=== PATIENT | male | born 1970 | race Caucasian/White ===

== ENCOUNTER → 2019-11-20 | Outpatient (CLI) | payer MEDICARE ==
[~2019-11-20] MED LIST: ALBUTEROL0.09 MG/A2 INH; COLCRYS0.6 MG PO; DETROL LA4 MG PO; LASIX40 MG PO; LISINOPRIL/HCTZ1 TA4 PO; MOBIC15 MG PO; NEURONTIN600 MG PO; OPANA5 MG PO; OXYCODONE/APAP1 TA8 PO; SIMVASTATIN20 MG PO; ULORIC80 MG PO; ZANTAC150 MG PO
[2019-11-20 13:02] LABS: ALBUMIN 3.9 gm/dl (3.1-4.5); BUN 13 mg/dl (7-24); CHLORIDE 107 mmol/L (98-107); CHOLESTEROL 162 mg/dL (<200); CREATININE 1.16 mg/dL (0.70-1.30); POTASSIUM 3.5 mmol/L (3.5-5.1); SGOT/AST 14 IU/L (3-35); SGPT/ALT 19 U/L (12-78); SODIUM 141 mmol/L (136-145); TRIGLYCERIDES 158 mg/dl (<150); VLDL CHOLESTEROL 32 mg/dL (6-40)
[2019-11-20 13:03] LABS: ALKALINE PHOSPHATASE 60 U/L (45-117); HDL CHOLESTEROL 37 mg/dl (40-60); LDL CHOLESTEROL 93 mg/dL (9-159); TOTAL PROTEIN 8.1 gm/dL (6.4-8.2)
== END | disposition home or self-care (01) ==
LOC: LAB 11:39
PROVIDERS: Registered Nurse Flight
DX: I25.10 Atherosclerotic heart disease of native coronary artery without angina pectoris (principal)

== ENCOUNTER → 2022-07-04 | Outpatient (CLI) | payer MEDICARE | LOC: RAD 09:27 | PROVIDERS: ATTEND Urology | DX: N20.0 Calculus of kidney (principal); M16.11 Unilateral primary osteoarthritis, right hip ==

== ENCOUNTER → 2022-07-30 | Outpatient (CLI) | payer MEDICARE | END | disposition home or self-care (01) | LOC: CT 07-11 10:00 | PROVIDERS: ATTEND Urology | DX: N26.1 Atrophy of kidney (terminal) (principal); N28.1 Cyst of kidney, acquired; N20.0 Calculus of kidney; K76.0 Fatty (change of) liver, not elsewhere classified; K57.32 Diverticulitis of large intestine without perforation or abscess without bleeding ==